=== PATIENT | female | born 1990 | race Caucasian/White ===

== ENCOUNTER 2017-06-12 21:27 | Emergency (ER) | payer OTHER ==
[2017-06-12 21:34] VITALS: RESP 16; O2SAT 96
--- NOTE | 2017-06-12 21:58 | EDPHY ---
H & P Stated Complaint: LAC R HAND/WINE GLASS HPI/ROS: Chief complaint: Right hand laceration History of present illness: 26-year-old female presents to the emergency department for a right hand laceration. Just prior to arrival she was holding a wine glass which broke and cut her on the inner aspect of her hand. Minimal pain. Bleeding controlled with a dressing at home. She denies other associated signs or symptoms including no abnormal coolness or paresthesias in the hand. She is moving all digits and the wrist well. Her tetanus is up-to- date. She does not believe any class got stuck in the wound. - Personal History LMP (Females 10-55): 8-14 Days Ago Current Tetanus Diphtheria and Acellular Pertussis (TDAP): Yes Tetanus Vaccine Date: < 10 years - Medical/Surgical History Hx Asthma: No Hx Chronic Respiratory Disease: No Hx Diabetes: No Hx Cardiac Disease: No Hx Renal Disease: No Hx Cirrhosis: No Hx Alcoholism: No Hx HIV/AIDS: No Hx Splenectomy or Spleen Trauma: No Other PMH: bipolar, DM, hypothyroid, PCOS - Social History Smoking Status: Never smoked - Physical Exam Exam: General: Alert, nontoxic Skin: 2 cm laceration to the medial aspect of the right hand. It approximates well. No foreign bodies noted on inspection. Musculoskeletal: Patient moving all digits in all joints in all pierce well. She is moving the wrist in all pierce well. Vascular: Radial pulses 2+. Capillary refill brisk in all digits of the right hand. Neurologic: Sensation intact throughout the right hand using light touch and two-point discrimination in the fingers. Constitutional: Initial Vital Signs Temperature (C) 36.5 C 06/12/17 21:32 Heart Rate 77 06/12/17 21:32 Respiratory Rate 16 06/12/17 21:32 Blood Pressure 125/81 H 06/12/17 21:32 O2 Sat (%) 96 06/12/17 21:32 O2 Delivery Mode Room Air Allergies/Adverse Reactions: No Known Allergies Allergy (Unverified 03/13/16 20:22) Home Medications: Medication Instructions Recorded Control 03/13/16 LEVOTHYROXINE SODIUM 03/13/16 Lamictal 03/13/16 Ondansetron Odt [Zofran Odt 4 mg 4 mg PO Q4 PRN #20 tab 03/13/16 (RX)] Wellbutrin Sr 03/13/16 metFORMIN HCL 03/13/16 LYRICA 06/12/17 Trileptal 06/12/17 Medical Decision Making Procedures: Procedure: Laceration repair. Verbal consent was obtained from the patient. The 2 cm laceration on the right hand was anesthetized in the usual fashion. The wound was irrigated, draped and explored to its base with a gloved finger. There were no deep structures involved. No tendon injury was identified. The wound was repaired with 5 0 Prolene. The wound repair was simple. The procedure was performed by myself. Procedure: Splint placement. A ulnar gutter splint was applied. After application of the splint I returned and re-examined the patient. The splint was adequately immobilizing the joint and distal to the splint the patient's circulation and sensation was intact. ED Course/Re-evaluation: Patient seen under the supervision of my secondary supervising physician Dr. Sonia Pompa. Patient presents for a right hand laceration. The hand appears neurovascularly intact. Patient has good musculoskeletal control. We have discussed obtaining an x-ray to evaluate for foreign body contamination but she has declined. The wound is explored without evidence of foreign body retention. It is repaired, dressed and splinted. Home care is discussed. She is to follow up with a primary care doctor or hand doctor for recheck. Return precautions are given. Patient voiced understanding and agreement with plan. Differential Diagnosis: Included but not limited to laceration, deep structure injury, foreign body contamination Departure - Departure Disposition: Home, Routine, Self-Care Clinical Impression: Hand laceration Qualifiers: Encounter type: initial encounter Foreign body presence: without foreign body Laterality: right Qualified Code(s): S61.411A - Laceration without foreign body of right hand, initial encounter Condition: Good Instructions: Care For Your Stitches (ED), Laceration (ED), Acute Wounds (ED) Additional Instructions: Follow-up with a primary care doctor or hand doctor next week for recheck Stitches to be removed in 7 days If symptoms worsen or new symptoms develop return to the emergency room for recheck Referrals: NONE *PRIMARY CARE P,. [Primary Care Provider] - As per Instructions [facility],. [Clinic] - As per Instructions Mickey Velasquez MD [Medical Doctor] - As per Instructions
[2017-06-12 22:38] VITALS: BP 121/75; PULSE 80; TEMP 97.9
== END 2017-06-12 22:36 | disposition home or self-care (01) ==
PROC: 0HQFXZZ Repair Right Hand Skin, External Approach (ICD-10-PCS; principal; 2017-06-12)
DX: S61.411A Laceration without foreign body of right hand, initial encounter (principal); E11.9 Type 2 diabetes mellitus without complications; Z79.84 Long term (current) use of oral hypoglycemic drugs; W25.XXXA Contact with sharp glass, initial encounter

== ENCOUNTER 2017-07-11 23:56 | Emergency (ER) | payer OTHER ==
[2017-07-12 00:03] VITALS: TEMP 97.9
[2017-07-12] MEDS ORDERED: diphenhydrAMINE 25 MG CAP PO ONE (00:47)
[2017-07-12] MEDS ORDERED: DEXAMETHASONE 4 MG TAB PO ONE (00:47)
[2017-07-12] MEDS ORDERED: CEPHALEXIN 500MG PREPACK#4 BTL TAKEHOME ONE (00:47)
--- NOTE | 2017-07-12 00:52 | EDPHY ---
H & P Time Seen by Provider: 07/12/17 00:18 HPI/ROS: Chief complaint: Pain and swelling around the left eye History of present illness: This is a 26-year-old female who presents to the emergency department for pain and swelling around the left eye. She reports the onset of symptoms over the last 3-4 days. Initially it was itchy and swelling. However it has started to become more painful. She did see urgent care today who thought it might be allergic and recommended she take Benadryl. She has taken 2 doses but feels it is continuing to worsen. She denies associated signs or symptoms: The eye itself does not feel involved, there is no eye discomfort, no discharge from the eye, no visual disturbances, further no fever, no cold symptoms, no runny or stuffy nose, no sore throat. Review of systems: A 10 point review of systems was obtained and other than described above was negative Smoking Status: Never smoked Physical Exam: General Appearance: Alert and no distress. Eyes: Pupils equal and round no injection. EOM intact without reported discomfort. ENT: Tympanic membranes, external auditory canals, external ears and surrounding soft tissue including over the mastoids are unremarkable. Nasopharynx is not injected. There is no rhinorrhea. Oropharynx is not injected. There is no edema. There is no exudate. There is no asymmetry. The uvula is midline. No elevation of the tongue. There is no hoarseness, no drooling, no trismus, no stridor. Respiratory: Chest is non tender, lungs are clear to auscultation. Cardiac: regular rate and rhythm Musculoskeletal: Neck is supple and non tender. Extremities have full range of motion and are non tender. Skin: Mild erythema and edema around the left eye. Mildly warm to palpation. No induration or fluctuance. Lymph: No lymph nodes noted on examination of the entire head and neck. Constitutional: Initial Vital Signs Temperature (C) 36.6 C 07/11/17 23:58 Heart Rate 67 07/11/17 23:58 Respiratory Rate 18 07/11/17 23:58 Blood Pressure 127/84 H 07/11/17 23:58 O2 Sat (%) 97 07/11/17 23:58 O2 Delivery Mode Room Air Allergies/Adverse Reactions: No Known Allergies Allergy (Unverified 03/13/16 20:22) Home Medications: Medication Instructions Recorded Control 11/24/16 LEVOTHYROXINE SODIUM 03/13/16 Lamictal 03/13/16 metFORMIN HCL 03/13/16 LYRICA 06/12/17 Trileptal 06/12/17 Cephalexin [Keflex (*)] 500 mg PO TID 6 Days cap 07/12/17 MDM/Departure - MDM Medications Given: Discontinued Medications Cephalexin (Keflex 500 Mg Prepack#4) 1 btl TAKEHOME EDNOW ONE PRN Reason: Protocol Stop: 07/12/17 00:48 Last Admin: 07/12/17 01:11 Dose: 1 btl Dexamethasone (Decadron) 4 mg PO EDNOW ONE Stop: 07/12/17 00:48 Last Admin: 07/12/17 01:12 Dose: 4 mg Diphenhydramine HCl (Benadryl) 50 mg PO EDNOW ONE Stop: 07/12/17 00:48 Last Admin: 07/12/17 01:12 Dose: 50 mg ED Course/Re-evaluation: Patient seen under the supervision of my secondary supervising physician Dr. Ramana Hewitt. Patient presents for pain and swelling around her left eye. The eye itself does not appear to be involved. I have discussed with her it is not clear if this is allergic or infectious. I will continue to have her treat for potential allergic causes with an antihistamine and will give her a dose of Decadron in the emergency room. However because it is progressing I will start her on antibiotics for potential infectious source given its location. Home care is discussed. She is asked to follow up with a primary care doctor this week for recheck. Return precautions are given. Patient voiced understanding and agreement with plan. Differential Diagnosis: Included but not limited to allergic reaction, cellulitis - Depart Disposition: Home, Routine, Self-Care Clinical Impression: Periorbital edema of left eye Condition: Good Instructions: Periorbital Cellulitis in Adults (ED) Additional Instructions: Follow-up with a primary care doctor on Thursday for recheck Take antibiotics as prescribed until finished Continue taking an oral antihistamine such as Claritin or Zyrtec daily Apply warm compresses to the eyes 3 times daily If symptoms worsen or new symptoms develop return to the emergency room for recheck Prescriptions: Cephalexin [Keflex (*)] 500 mg PO TID 6 Days cap Referrals: Du Francisco MD [Primary Care Provider] - As per Instructions
[2017-07-12 01:19] VITALS: BP 130/77; PULSE 71; RESP 16; O2SAT 96
== END 2017-07-12 01:19 | disposition home or self-care (01) ==
DX: H05.222 Edema of left orbit (principal)